=== PATIENT | female | born 1940 | race Caucasian/White ===

== ENCOUNTER 2016-09-09 09:20 | Emergency (ER) | payer OTHER ==
[2016-09-09 09:57] VITALS: BP 125/90
--- NOTE | 2016-09-09 10:02 | UC ---
Respiratory Complaint HPI - HPI Summary HPI Summary: 76 yo female presents with wheezing which has worsened x weeks States she no longer has a primary that will follow her because no one takes WC anymore States her RAD is due to chemicals and molds WC case >30 yrs old See a wastewater treatment supervisor later today but states it's just for blood work - History of Current Complaint Chief Complaint: UCRespiratory Stated Complaint: UPPER RESPIRATORY SINUS WHEEZING ASTHMA Time Seen by Provider: 09/09/16 09:39 Hx Obtained From: Patient Hx Last Menstrual Period: n/a Onset/Duration: Gradual Onset, Lasting Weeks Timing: Constant Severity Initially: Mild Severity Currently: Moderate Pain Intensity: 0 - 0 due to respiratory issue/has chronic back and left shoulder pain Pain Scale Used: 0-10 Numeric Character: Cough: Nonproductive Aggravating Factors: Exertion, Deep Breaths Alleviating Factors: Bronchodilator - running low on albuterol Associated Signs And Symptoms: Positive: Wheezing - Allergies/Home Medications Allergies/Adverse Reactions: Allergies Allergy/AdvReac Type Severity Reaction Status Date / Time Codeine Allergy Severe Pain Verified 09/09/16 09:27 Meperidine [From Demerol HCl] Allergy Severe Hives Verified 09/09/16 09:27 Cephalexin [From Keflex] Allergy Unknown Rash Verified 09/09/16 09:27 Clarithromycin [From Biaxin] Allergy Unknown Unknown Verified 09/09/16 09:27 Reaction Details Ipratropium [From Atrovent] Allergy Unknown Unknown Verified 09/09/16 09:27 Reaction Details Levalbuterol Hydrochloride Allergy Unknown cough,chock Verified 09/09/16 09:27 [From Xopenex] ,gag Levofloxacin [From Levaquin] Allergy Unknown Unknown Verified 09/09/16 09:27 Reaction Details Sulfa Drugs Allergy Unknown Unknown Verified 09/09/16 09:27 Reaction Details allupent Allergy Unknown Unknown Uncoded 09/09/16 09:27 Reaction Details inhaled steroids Allergy Unknown Unknown Uncoded 09/09/16 09:27 Reaction Details quinalones Allergy Unknown Uncoded 09/09/16 09:27 Reaction Details PMH/Surg Hx/FS Hx/Imm Hx Previously Healthy: No Endocrine History: Hypothyroidism Respiratory History: Asthma, Bronchitis - Surgical History Surgical History: Yes Surgery Procedure, Year, and Place: Gallbladder,left wrist surgeries, D&C,two sinus surgeries - Family History Known Family History: Positive: Hypertension, Respiratory Disease - Social History Alcohol Use: None Substance Use Type: None Smoking Status (MU): Former Smoker Review of Systems Constitutional: Negative Skin: Negative Eyes: Negative ENT: Negative Respiratory: Cough, Other - wheezing Cardiovascular: Negative Gastrointestinal: Negative Genitourinary: Negative Motor: Negative Neurovascular: Negative Musculoskeletal: Arthralgia, Myalgia Neurological: Negative Psychological: Negative All Other Systems Reviewed And Are Negative: Yes Physical Exam Triage Information Reviewed: Yes Appearance: Well-Appearing, No Pain Distress, Well-Nourished Vital Signs: Initial Vital Signs Temp 97.9 F 09/09/16 09:29 Pulse 101 09/09/16 09:29 Resp 18 09/09/16 09:29 BP 125/90 09/09/16 09:29 Pulse Ox 97 09/09/16 09:29 Eyes: Positive: Conjunctiva Clear ENT: Positive: Hearing grossly normal. Negative: Nasal congestion, Nasal drainage, Trismus, Muffled/hoarse voice Neck: Positive: Supple, Nontender, No Lymphadenopathy Respiratory: Positive: No respiratory distress, No accessory muscle use, Wheezing Cardiovascular: Positive: RRR Musculoskeletal: Positive: ROM Intact, No Edema Neurological: Positive: Alert Psychological Exam: Normal Skin Exam: Normal UC Diagnostic Evaluation - Laboratory O2 Sat by Pulse Oximetry: 97 - normal/not hypoxic Respiratory Course/Dx - Differential Dx/Diagnosis Provider Diagnoses: bronchospasm. bronchitis Discharge - Discharge Plan Condition: Stable Disposition: HOME Prescriptions: Albuterol HFA INHALER* [Ventolin HFA Inhaler*] 2 puff INH QID #1 mdi Prednisone [Deltasone] 20 - 60 mg PO SEE INSTRUCTIONS #18 tab Patient Education Materials: Bronchospasm (ED) Additional Instructions: to er for new or worsening symptoms
== END 2016-09-09 10:19 | disposition home or self-care (01) ==
LOC: UCCORT 09:20
DX: J20.9 Acute bronchitis, unspecified (principal); Z87.891 Personal history of nicotine dependence
CPT/HCPCS: 99212; G0463

== ENCOUNTER 2016-10-04 17:26 | Emergency (ER) | payer OTHER ==
--- NOTE | 2016-10-04 17:49 | UC ---
Throat Pain/Nasal Duncan HPI - HPI Summary HPI Summary: 76 y/o female PMHX asthma, HTN, hypothyroidism, chronic sinusitis presents to the urgent care c/o severe sinus congestion w/ AYALA for the past 5 days. Now she feels her chronic sinusitis is getting worse. Last night she had mild wheezing , she used the albuterol inhaler. She states her neighbors have been burning something on the parking lot yesterday and her sinus symptoms got worse. Now she has a green nasal discharge. Her AYALA is 4/10. She also states she has had 2 sinus surgeries in the past. Denies fever, SOB, chest pain, N/V/D, abdominal pain. Pt states this a worker comp. asthma related. Pt has not other complains - History of Current Complaint Stated Complaint: SINUS Time Seen by Provider: 10/04/16 17:47 Hx Obtained From: Patient Hx Last Menstrual Period: n/a Onset/Duration: Gradual Onset, Lasting Days, Still Present Severity: Moderate Pain Intensity: 4 Pain Scale Used: 0-10 Numeric Cough: Nonproductive Associated Signs & Symptoms: Positive: Sinus Discomfort, Nasal Discharge - green drainage Related History: Other (Noted In Comments) - Pt w/ HX of chronic sinusitis - Epiglottits Risk Factors Epiglottis Risk Factors: Negative - Allergies/Home Medications Allergies/Adverse Reactions: Allergies Allergy/AdvReac Type Severity Reaction Status Date / Time Codeine Allergy Severe Pain Verified 10/04/16 18:05 Meperidine [From Demerol HCl] Allergy Severe Hives Verified 10/04/16 18:05 Cephalexin [From Keflex] Allergy Unknown Rash Verified 10/04/16 18:05 Clarithromycin [From Biaxin] Allergy Unknown Unknown Verified 10/04/16 18:05 Reaction Details Ipratropium [From Atrovent] Allergy Unknown Unknown Verified 10/04/16 18:05 Reaction Details Levalbuterol Hydrochloride Allergy Unknown cough,chock Verified 10/04/16 18:05 [From Xopenex] ,gag Levofloxacin [From Levaquin] Allergy Unknown Unknown Verified 10/04/16 18:05 Reaction Details Sulfa Drugs Allergy Unknown Unknown Verified 10/04/16 18:05 Reaction Details allupent Allergy Unknown Unknown Uncoded 10/04/16 18:05 Reaction Details inhaled steroids Allergy Unknown Unknown Uncoded 10/04/16 18:05 Reaction Details quinalones Allergy Unknown Uncoded 10/04/16 18:05 Reaction Details PMH/Surg Hx/FS Hx/Imm Hx Previously Healthy: Yes Endocrine History: Hypothyroidism Other Endocrine History: hypoglycemia Cardiovascular History: Hypertension Respiratory History: Asthma GI/ History: Gastroesophageal Reflux Other Neurological History: Spondolythiasis, Degenerative disc disease. Compression fractures. - Surgical History Surgical History: Yes Surgery Procedure, Year, and Place: Gallbladder,left wrist surgeries, D&C,two sinus surgeries - Family History Known Family History: Positive: Cardiac Disease, Hypertension, Diabetes, Respiratory Disease - Social History Occupation: Retired Lives: With Family Alcohol Use: None Substance Use Type: None Smoking Status (MU): Former Smoker Review of Systems Constitutional: Negative Skin: Negative Eyes: Negative ENT: Nasal Discharge, Sinus Congestion, Sinus Pain/Tenderness - w/ swelling , specially on the left cheek Respiratory: Cough - dry, Other - mild wheezing Cardiovascular: Negative Gastrointestinal: Negative Genitourinary: Negative Motor: Negative Neurovascular: Negative Musculoskeletal: Negative Neurological: Negative Psychological: Negative All Other Systems Reviewed And Are Negative: Yes Physical Exam Triage Information Reviewed: Yes Appearance: Well-Appearing, No Pain Distress - sitting on her wheel chair., Well -Nourished, Obese Vital Signs Reviewed: Yes Eye Exam: Normal Eyes: Positive: Conjunctiva Clear - PERRLA, EOMI, fundi grosly normal ENT: Positive: Normal ENT inspection, Hearing grossly normal, Pharynx normal, Nasal congestion - edematous and erythemaotus nasal mucosa, Nasal drainage - yellowish drainage, tenderness over palpation of the left maxillary sinus, TMs normal. Negative: Tonsillar swelling, Tonsillar exudate Dental Exam: Normal Neck exam: Normal Neck: Positive: Supple, Nontender, No Lymphadenopathy Respiratory Exam: Normal Respiratory: Positive: Chest non-tender, Lungs clear, Wheezing - mild wheezing over the left posterio upper lung Cardiovascular Exam: Normal Cardiovascular: Positive: RRR, No Murmur, Pulses Normal Abdominal Exam: Normal Abdomen Description: Positive: Nontender, No Organomegaly. Negative: CVA Tenderness (R), CVA Tenderness (L) Bowel Sounds: Positive: Present Musculoskeletal Exam: Normal Musculoskeletal: Positive: Strength Intact, No Edema Neurological Exam: Normal Psychological Exam: Normal Skin Exam: Normal Throat Pain/Nasal Course/Dx - Course Course Of Treatment: 76 y/o female PMHX asthma, HTN, hypothyroidism, chronic sinusitis presents to the urgent care c/o severe sinus congestion w/ AYALA for the past 5 days. Now she feels her chronic sinusitis is getting worse. Last night she had mild wheezing, she used the albuterol inhaler. She states her neighbors have been burning something on the parking lot yesterday and her sinus symptoms got worse. Now she has a green nasal discharge. Her AYALA is 4/ 10. She also states she has had 2 sinus surgeries in the past. Denies fever, SOB, chest pain, N/V/D, abdominal pain. Hx obtained. Pt with Acute sinusitis. Pt Rx augmentin PO and use the saline spary at home to alleviate symptoms. Pt Rx Prednisosne PO and advised her to continue using the albuterol inhalerto alleviate symptoms. Pt advised if SOB and fever develops despite taking antibiotics to go to the ER for further treatment, Otherwise f/u with her PCP for further managemnt on her Asthama. Pt understood and agreed - Differential Dx/Diagnosis Differential Diagnosis/HQI/PQRI: Influenza, Pharyngitis, Sinusitis, Tonsillitis , URI, Other Provider Diagnoses: 1-Acute sinusistis. 2-Asthma exacerbation Discharge - Discharge Plan Condition: Stable Disposition: HOME Prescriptions: Amoxicillin/Clavulanate TAB* [Augmentin TAB 875*] 875 mg PO BID #20 tab predniSONE TAB* [Deltasone TAB*] 20 mg PO DAILY #11 tab Patient Education Materials: Asthma (ED), Sinusitis (ED) Referrals: Non Staff,Doctor [Primary Care Provider] - [facility] [Outside] Additional Instructions: Please take full course of antibiotic to avoid resistance. Continue using the albuterol inhaler and take Prednisone PO as directed to alleviate symptoms. continue taking the Tylenol 14-6hrs prn to alleviate your AYALA. If symptoms do not improve despite the antibiotic and your develop fever and SOB, please go to the ER immediately for further treatment. Otherwise f/u with your PCP for further management in your chronic Asthma and sinusitis.
[2016-10-04 18:33] VITALS: BP 138/60
== END 2016-10-04 18:45 | disposition home or self-care (01) ==
LOC: UCCORT 17:26
DX: J01.90 Acute sinusitis, unspecified (principal); J45.901 Unspecified asthma with (acute) exacerbation; E03.9 Hypothyroidism, unspecified; E16.2 Hypoglycemia, unspecified; I10 Essential (primary) hypertension; K21.9 Gastro-esophageal reflux disease without esophagitis; Z88.5 Allergy status to narcotic agent; Z88.1 Allergy status to other antibiotic agents; Z88.2 Allergy status to sulfonamides; Z88.8 Allergy status to other drugs, medicaments and biological substances; Z87.891 Personal history of nicotine dependence
CPT/HCPCS: 99212; G0463

== ENCOUNTER 2016-10-28 15:22 | Emergency (ER) | payer OTHER ==
[2016-10-28 15:36] VITALS: BP 130/82
--- NOTE | 2016-10-28 16:35 | UC ---
Respiratory Complaint HPI - HPI Summary HPI Summary: Pt presents with c/o exacerbation of her asthma with cough, SOB, wheezing. Pt reports this is continued complication as a result of exposure to breathing toxin in 1984. - History of Current Complaint Chief Complaint: UCRespiratory Stated Complaint: DIFFICULTY BREATHING/ASTHMA Time Seen by Provider: 10/28/16 15:43 Hx Obtained From: Patient Hx Last Menstrual Period: n/a ?: No Onset/Duration: Gradual Onset, Still Present, Worse Since - onset Timing: Constant Severity Initially: Mild Severity Currently: Mild Character: Cough: Nonproductive Aggravating Factors: Deep Breaths, Recumbent Position Alleviating Factors: Nothing Associated Signs And Symptoms: Positive: Dyspnea, Wheezing, URI Related History: Seasonal Allergies - Risk Factors Pseudomonas Risk Factors: Chronic Lung Disease - Allergies/Home Medications Allergies/Adverse Reactions: Allergies Allergy/AdvReac Type Severity Reaction Status Date / Time Codeine Allergy Severe Pain Verified 10/28/16 15:36 Meperidine [From Demerol HCl] Allergy Severe Hives Verified 10/28/16 15:36 Cephalexin [From Keflex] Allergy Unknown Rash Verified 10/28/16 15:36 Clarithromycin [From Biaxin] Allergy Unknown Unknown Verified 10/28/16 15:36 Reaction Details Ipratropium [From Atrovent] Allergy Unknown Unknown Verified 10/28/16 15:36 Reaction Details Levalbuterol Hydrochloride Allergy Unknown cough,chock Verified 10/28/16 15:36 [From Xopenex] ,gag Levofloxacin [From Levaquin] Allergy Unknown Unknown Verified 10/28/16 15:36 Reaction Details Sulfa Drugs Allergy Unknown Unknown Verified 10/28/16 15:36 Reaction Details allupent Allergy Unknown Unknown Uncoded 10/28/16 15:36 Reaction Details inhaled steroids Allergy Unknown Unknown Uncoded 10/28/16 15:36 Reaction Details quinalones Allergy Unknown Uncoded 10/28/16 15:36 Reaction Details Home Medications: Home Medications Loratadine [Claritin 10 MG CAP] 10 mg PO DAILY 10/28/16 [History Confirmed 10/28] PMH/Surg Hx/FS Hx/Imm Hx Previously Healthy: No - see pmh Respiratory History: COPD, Asthma - Surgical History Surgical History: Yes Surgery Procedure, Year, and Place: Gallbladder,left wrist surgeries, D&C,two sinus surgeries - Family History Known Family History: Positive: Cardiac Disease, Hypertension, Diabetes, Respiratory Disease - Social History Occupation: Disabled Lives: With Family Alcohol Use: None Substance Use Type: None Smoking Status (MU): Former Smoker Have You Smoked in the Last Year: No When Did the Patient Quit Smoking/Using Tobacco: over 30 years - Immunization History Most Recent Influenza Vaccination: no Review of Systems Constitutional: Negative Skin: Negative Eyes: Negative ENT: Negative Respiratory: Cough, Other - wheezing Cardiovascular: Negative Gastrointestinal: Negative Genitourinary: Negative Motor: Negative Neurovascular: Negative Musculoskeletal: Negative Neurological: Negative Psychological: Negative All Other Systems Reviewed And Are Negative: Yes Physical Exam Triage Information Reviewed: Yes Appearance: Well-Appearing Vital Signs: Initial Vital Signs Temp 98 F 10/28/16 15:25 Pulse 99 10/28/16 15:25 Resp 18 10/28/16 15:25 BP 130/82 10/28/16 15:25 Pulse Ox 97 10/28/16 15:25 Vital Signs Reviewed: Yes Eye Exam: Normal ENT Exam: Other ENT: Positive: Nasal congestion Neck exam: Normal Respiratory Exam: Other Respiratory: Positive: Decreased breath sounds - bilateral bases, Wheezing Cardiovascular Exam: Normal Musculoskeletal Exam: Normal Neurological Exam: Normal Psychological Exam: Normal Skin Exam: Normal UC Diagnostic Evaluation - Laboratory O2 Sat by Pulse Oximetry: 97 Respiratory Course/Dx - Differential Dx/Diagnosis Differential Diagnosis/HQI/PQRI: Bronchitis, Exacerbation Of COPD Provider Diagnoses: exacerabation of COPD Discharge - Discharge Plan Condition: Stable Disposition: HOME Prescriptions: Albuterol 2.5MG/3ML (0.083%)* [Ventolin 2.5 MG/3 ML NEB.ARINA*] 2.5 mg INH Q4H PRN #1 box PRN Reason: Wheezing Amoxicillin/Clavulanate TAB* [Augmentin TAB 500 mg*] 500 mg PO Q12H #20 tab predniSONE TAB* [Deltasone TAB*] 10 mg PO DAILY #22 tab Patient Education Materials: Acute Bronchitis (ED), Bronchospasm (ED) Referrals: [facility] [place] [facility] [Outside] Non Staff,Doctor [Primary Care Provider] - If Needed (Please follow up with your PCP or return to clinic as needed. )
== END 2016-10-28 16:31 | disposition home or self-care (01) ==
LOC: UCCORT 15:22
DX: J44.1 Chronic obstructive pulmonary disease with (acute) exacerbation (principal); Z87.891 Personal history of nicotine dependence
CPT/HCPCS: 99212; G0463